=== PATIENT | male | born 1980 | race Caucasian/White ===

== ENCOUNTER 2018-02-24 23:30 | Emergency (ER) | payer MEDICAID ==
[~2018-02-24] VITALS: Ht 162.6 cm; Wt 81.2 kg
[2018-02-25 01:36] VITALS: BP 133/90
== END 2018-02-25 01:36 | disposition home or self-care (01) ==
LOC: ED 23:30
DX: L02.612 Cutaneous abscess of left foot (principal); W57.XXXA Bitten or stung by nonvenomous insect and other nonvenomous arthropods, initial encounter; Y93.89 Activity, other specified; Y92.89 Other specified places as the place of occurrence of the external cause; Y99.8 Other external cause status

== ENCOUNTER 2018-02-27 19:24 | Emergency (ER) | payer MEDICAID ==
[~2018-02-27] VITALS: Ht 162.6 cm; Wt 81.2 kg
[2018-02-27 19:46] VITALS: BP 124/83
== END 2018-02-27 19:46 | disposition home or self-care (01) ==
LOC: ED 19:24
DX: Z48.01 Encounter for change or removal of surgical wound dressing (principal); I10 Essential (primary) hypertension

== ENCOUNTER 2018-08-13 17:15 | Emergency (ER) | payer MEDICAID ==
[~2018-08-13] VITALS: Ht 154.9 cm; Wt 85.3 kg
[2018-08-13 17:25] VITALS: Ht 154.9 cm; Wt 85.3 kg
[2018-08-13 21:40] VITALS: BP 117/79
== END 2018-08-13 21:41 | disposition home or self-care (01) ==
LOC: ED 17:15
DX: G44.209 Tension-type headache, unspecified, not intractable (principal); G43.909 Migraine, unspecified, not intractable, without status migrainosus

== ENCOUNTER 2018-08-31 04:54 | Emergency (ER) | payer MEDICAID ==
[~2018-08-31] VITALS: Ht 162.6 cm; Wt 83.0 kg
[2018-08-31 04:56] VITALS: Ht 162.6 cm; Wt 83.0 kg
[2018-08-31 07:23] VITALS: BP 120/69
== END 2018-08-31 07:23 | disposition home or self-care (01) ==
LOC: ED 04:54
DX: J11.1 Influenza due to unidentified influenza virus with other respiratory manifestations (principal); G43.909 Migraine, unspecified, not intractable, without status migrainosus
CPT/HCPCS: 87804

== ENCOUNTER 2019-01-31 22:34 | Emergency (ER) | payer MEDICAID ==
[~2019-01-31] VITALS: Ht 162.6 cm; Wt 79.8 kg
[2019-01-31 22:47] VITALS: Ht 162.6 cm; Wt 79.8 kg
[2019-02-01 01:48] VITALS: BP 119/74
== END 2019-02-01 01:48 | disposition home or self-care (01) ==
LOC: ED 22:34
DX: H43.811 Vitreous degeneration, right eye (principal); G43.909 Migraine, unspecified, not intractable, without status migrainosus
CPT/HCPCS: 76512; Q0092